=== PATIENT | female | born 1980 ===

== ENCOUNTER 2020-06-19 08:30 | Day surgery (SDC) | payer OTHER ==
[~2020-06-19 08:30] MED LIST: ceFAZolin 2 GM/D5W 50 ML IV BAG (J0690 PER 500MG) As Ordered ONE
[2020-06-19] MEDS ORDERED: METOCLOPRAMIDE INJ 10MG/2ML VIAL (J2765 PER 1) ONE (08:31)
[2020-06-19] MEDS ORDERED: ceFAZolin 2 GM/D5W 50 ML IV BAG (J0690 PER 500MG) ONE (08:31)
[2020-06-19] MEDS ORDERED: LIDOCAINE 2% 100MG/5ML SDV (FOR ANES.) As Ordered ONE (08:31)
[2020-06-19] MEDS ORDERED: propofoL 200 MG/20 ML VIAL As Ordered ONE (08:31)
[2020-06-19] MEDS ORDERED: ONDANSETRON 4MG/2ML VIAL As Ordered ONE (08:31)
[2020-06-19] MEDS ORDERED: fentaNYL 100 MCG/2 ML INJECTION (J3010) As Ordered ONE (08:32)
[2020-06-19] MEDS ORDERED: dexameTHASONE 4 MG/ML 1ML VIAL (J1100 PER 1MG) As Ordered ONE (08:32)
[2020-06-19] MEDS ORDERED: MIDAZOLAM INJ 2MG/2ML VIAL (J2250 PER 1MG) As Ordered ONE (08:32)
[2020-06-19] MEDS ORDERED: CONRAY-60 60% 50ML VIAL (Q9961) As Ordered ONE (09:49)
[2020-06-19] MEDS ORDERED: PHENYLephrine HCL 500 MCG/5 ML (100MCG/ML) SYRINGE (J2370) As Ordered ONE (10:40)
[2020-06-19] MEDS ORDERED: METOCLOPRAMIDE INJ 10MG/2ML VIAL (J2765 PER 1) As Ordered ONE (11:34)
[2020-07-31 15:11] LABS: CA Oxalate Dihy 60 % (.); Ca Ox Monohydrate 20 % (.); Size 7x5 mm (.)
[2020-08-11 01:49] LABS: INR 0.92; PROTHROMBIN TIME 12.6 SECONDS (12.5-14.3)
--- NOTE | 2020-08-16 11:30 | RO ---
DATE OF OPERATION: June 19, 2020 PRE-PROCEDURE DIAGNOSIS: Left ureteral stone. POST-PROCEDURE DIAGNOSIS: Left ureteral stone. PROCEDURES: Cystoscopy. Left ureteroscopy with basket extraction of stone. Left retrograde pyelogram and intraoperative interpretative images. Left ureteral stent exchange. SURGEON: Harish Sands MD. HYDRAULIC PRESS SERVICER: None. ANESTHESIA: General. OPERATIVE INDICATIONS: This is a 39-year-old female who was found to have an obstructing left ureteropelvic junction stone recently. She had a cystoscopy and a left ureteral stent placed by another urologist. She presented to our clinic for treatment. She is here today to remove her stone. DESCRIPTION OF PROCEDURE: The patient was brought to the operating room and general anesthesia was induced. Prophylactic antibiotics were infused. She was placed in the dorsal lithotomy position, prepped, and draped in the usual sterile fashion. A rigid cystoscope was inserted into the urethral meatus and advanced to the bladder. The previously placed left ureteral stent was seen and withdrawn until the distal end was protruding from the urethral meatus. A guidewire was advanced up the stent into the left collecting system. The stent was then removed leaving the wire in place. A ureteral access sheath was advanced over the wire into the left collecting system. I went up the ureteral access sheath with the flexible ureteroscope and examined the left kidney thoroughly. There were no stones at all inside the left kidney. There was a moderate amount of debris inside the left kidney. I then withdrew the ureteroscope along the access sheath. As the scope got down to the level of the distal ureter, the 5-mm stone was seen. It appeared to have been behind the ureteral access sheath. The stone was then grasped with a basket and withdrawn completely. A retrograde pyelogram was performed and was notable for mild left hydronephrosis with no extravasation. I then withdrew the ureteroscope and the access sheath completely. I then utilized the wire to advance a 6-[place] x 22-32 cm JJ ureteral stent into the left collecting system. The wire was removed with an adequate curl of the stent in the left renal pelvis and in the bladder. The bladder was emptied of all fluid. This marked the conclusion of the procedure. The patient was then taken out of the dorsal lithotomy position, awakened from anesthesia, and transferred to the recovery room in stable condition. ESTIMATED BLOOD LOSS: 5 mL. COMPLICATIONS: None. SPECIMEN: Kidney stone. PLAN: The patient will follow up in the clinic in a week or two for stent removal. CHAUNCEY
--- NOTE | 2020-08-17 10:47 | REP ---
C-ARM VIEWS ABDOMEN AND PELVIS DURING LEFT URETERAL STENT PLACEMENT TECHNIQUE: Two C-arm views are performed. FINDINGS: Contrast partially opacifies the pelvicalyceal system. A left ureteral stent is placed with the proximal end coiled in the left renal pelvis and the distal end in the urinary bladder. There was 22 seconds of fluoroscopy time utilized. MTDD
== END 2020-06-19 13:45 | disposition home or self-care (01) ==
LOC: M SDC 08:30
PROVIDERS: ATTEND Urology
DX: N20.1 Calculus of ureter (principal); F17.218 Nicotine dependence, cigarettes, with other nicotine-induced disorders
CPT/HCPCS: 52332; 52352; 74420; 82365; 85610; 88300; C1769; C1894; C2617; J0690; J1100; J2250; J2370; J2405; J2765; J3010; Q9961